=== PATIENT | male | born 1950 | race Caucasian/White ===

== ENCOUNTER 2018-12-15 07:55 | Emergency (ER) | payer MEDICARE ==
[~2018-12-15] VITALS: Ht 182.9 cm; Wt 111.1 kg
--- OUTSIDE RECORDS SUMMARY | 2018-12-15 08:01 | XMS REPORT ---
Author Author [facility] Address Unknown Phone Unavailable Care Team Providers Care Concrete Vault Maker Name Role Phone RILEY STILES Unavailable Unavailable Problems This patient has no known problems. Allergies, Adverse Reactions, Alerts This patient has no known allergies or adverse reactions. Medications This patient has no known medications. Results Test Description Test Time Test Comments Text Results Atomic Results Result Comments TISSUE EXAM 2018-07-21 17:02:00 Surgical Pathology Report Case: [id number] Authorizing Provider: Kesha Stiles, Collected: 07/14/2018 1118 MD Ordering Location: [facility] PERIOPERATIVE Received: 07/14/2018 1243 SERVICES Pathologist: La Caballero MD Specimen: Femoral Head,Left Hip LEFT FEMORAL HEAD, TOTAL HIP REPLACEMENT: - DEGENERATIVE JOINT DISEASE, SEVERE - SYNOVIUM WITH REACTIVE CHANGES - SUGGESTIVE OF OSTEOPENIA - NEGATIVE FOR MALIGNANCY Signing Pathologist Direct Phone Line: [phone] signed by La Caballero MD on 07/21/2018 at 5:02 [id number]; [id number] osteoarthritis left hipLeft femoral head Received fresh labeled "femoral head, left hip" is a 7.5 x 5.5 x 4.5 cm femoral head. The articular surface is mckeon-white to yellow-cooper and displays focal areas of pitting and eburnation. Also noted is osteophyte formation surrounding the periphery. Section code: A1-A2, bone for decalcification; A3, soft tissue for decalcification. DB/ew PERFORMED BASIC METABOLIC PANEL 2018-07-15 04:57:00 SODIUM (BEAKER) (test oigx=206) 138 meq/L 136-145 POTASSIUM (BEAKER) (test flut=553) 4.7 meq/L 3.5-5.1 Specimen slightly hemolyzed CHLORIDE (BEAKER) (test qnrq=689) 107 meq/L 98-107 CO2 (BEAKER) (test vocy=969) 25 meq/L 22-29 BLOOD UREA NITROGEN (BEAKER) (test fiuj=499) 16 mg/dL 7-21 CREATININE (BEAKER) (test zbet=943) 0.84 mg/dL 0.57-1.25 Specimen slightly hemolyzed GLUCOSE RANDOM (BEAKER) (test jmjp=141) 130 mg/dL 70-105 CALCIUM (BEAKER) (test ribe=582) 9.0 mg/dL 8.4-10.2 EGFR (BEAKER) (test xitr=9019) 91 mL/min/1.73 sq m ESTIMATED GFR IS NOT ACCURATE CREATININE CLEARANCE IN PREDICTING GLOMERULAR FILTRATION RATE. ESTIMATED GFR IS NOT APPLICABLE FOR DIALYSIS PATIENTS. HEMOGLOBIN AND [id number] 04:27:00* Test Item Value Reference Range Comments HEMOGLOBIN (BEAKER) (test xtld=803) 12.8 GM/DL 13.7-17.5 HEMATOCRIT (BEAKER) (test quzz=662) 39.1 % 40.1-51.0 RAD, PELVIS, 1 OR 2 [id number] 13:41:00Reason for exam:->post op total hip in PACUShould this be performed at the bedside?->YesFINAL REPORT TECHNIQUE: Frontal radiograph of the pelvis dated 07/14/2018 HISTORY: Postop total hip COMPARISON: Radiograph of the pelvis performed earlier the same day. IMPRESSION:The patient is status post total left knee arthroplasty with postsurgical fluid and air seen in the soft tissues. No fracture or dislocation. Bones are osteopenic. Degenerative changes are seen in the right hip. No bone erosion or soft tissue nodule seen. Signed: Aranza Amadoreport Verified Date/Time: 07/14/2018 13:41:02 Reading Location: [facility] Radiology Reading Room , PELVIS, 1 OR 2 [id number] 12:02:00Reason for exam:->left hip arthroplastyFINAL REPORT CLINICAL HISTORY: left hip arthroplasty TECHNIQUE: AP view of the lower pelvis COMPARISON: None IMPRESSION: Surgical hardware overlies and partially obscures the visualized portions of the pelvis. The patient is undergoing left total hip replacement with an acetabular component and femoral rasp. Signed: Chelita Beth MDReport Verified Date/Time: 07/14/2018 12:02:19 Reading Location: [facility] Radiology Reading Room
--- OUTSIDE RECORDS SUMMARY | 2018-12-15 08:01 | XMS REPORT | Clinical Summary ---
Author Author [facility] Address Unknown Phone Unavailable Care Team Providers Care Conservation Assistant Name Role Phone PCP Unavailable Allergies No Known Allergies Medications End Date Status Medication Sig Dispensed Refills Start Date Active atorvastatin (LIPITOR) 20 Take 20 mg by 0 MG tablet mouth daily. 08/13/2018 aspirin 325 MG EC tablet Take 1 tablet 28 tablet 0 (325 mg 8 total) by mouth daily for 28 days. 07/30/2018 HYDROcodone-acetaminophen Take 1 tablet 60 tablet 0 (NORCO 10-325) 10-325 mg by mouth 8 per tablet every 6 (six) hours as needed for up to 15 days. Max Daily Amount: 4 tablets Active Problems Problem Noted Date Primary osteoarthritis of left hip 07/14/2018 Status post left hip replacement 07/14/2018 Encounters Care Team Description Date Type Specialty 07/15/2018 Travel Kesha Lopez MD ARTHROPLASTY,HIP 07/14/2018 Surgery Rosa Maria Mejia NP 07/14/2018 Anesthesia Event Kesha Lopez MD 07/14/2018 [facility] General Internal Medicine - Encounter 07/15/2018 07/14/2018 Travel Resource, [employer] Preadmit Phone 07/08/2018 Hospital Pre-Admission Testing Encounter after 12/14/2017 Social History Date Tobacco Use Types Packs/Day Years Used Never Smoker Smokeless Tobacco: Current User Comments: dips 2 cans per week Alcohol Use Drinks/Week oz/Week Comments Yes occasional Sex Assigned at Date Recorded Not on file Industry Job Start Date Occupation Not on file Not on file Not on file Travel End Travel History Travel Start No recent travel history available. Last Filed Vital Signs Time Taken Vital Sign Reading 07/15/2018 3:43 PM [employer] Blood Pressure 123/68 07/15/2018 3:43 PM [employer] Pulse 80 07/15/2018 3:43 PM [employer] Temperature 37.2 C (99 F) 07/15/2018 3:43 PM [employer] WORK[employer] Respiratory Rate 18 07/15/2018 3:43 PM [employer] WORKER Oxygen Saturation 98% - Inhaled Oxygen - Concentration 07/14/2018 8:05 AM [employer] WORK[employer] Weight 125 kg (275 lb 9.2 oz) 07/14/2018 8:05 AM [employer] WORK[employer] Height 182.9 cm (6') 07/14/2018 8:05 AM [employer] WORKER Body Mass Index 37.37 Plan of Treatment Not on file Implants Device Identifier Shelf Expiration Date Model / Serial / Lot Implanted Type Area Manufactur er 02/02/2023 [id number] / / [id number] Scr Low Profile 6.5x20mm 6044-2880 Fracture/F Left: Hip JAQUAN:ST - [id number] TIMMY Implanted: Qty: 2 on 07/14/2018 by Kesha Cunha MD 04/25/2023 702-04-56F / / [id number] Trident Ii Tri Clusterhole 56f Joints Left: Hip JAQUAN 702-04-56f - [id number] ORTHO CAP Implanted: Qty: 1 on 07/14/2018 by Kesha Lopez MD 05/29/2023 623-00-36F / [id number] / [id number] Insrt Trident X3 0deg F 36mm Joints Left: Hip JAQUAN:ST 623-00-36f - [id number] TIMMY Implanted: Qty: 1 on 07/14/2018 by Kesha Cunha MD 10/21/2022 [id number] / [id number] / [id number] Hip Stem Accolade Ii 127d 5 - Joints Left: Hip JAQUAN:ST [id number] TIMMY Implanted: Qty: 1 on 07/14/2018 by Kesha Cunha MD 04/08/2023 6570-0-236 / [id number] / [id number] Head Fem Biolox V40 36mm 6570-0-236 Joints Left: Hip JAQUAN:ST - [id number] Implanted: Qty: 1 on 07/14/2018 by Kesha Cunha MD CS Procedures Comments Procedure Name Priority Date/Time Associated Diagnosis TRANSFUSION SERVICE 07/15/2018 REPORT - SCAN 5:51 PM [employer] WORK[employer] HEMOGLOBIN AND HEMATOCRIT Routine 07/15/2018 3:45 AM [employer] FACTORY WORKER BASIC METABOLIC PANEL (7) Routine 07/15/2018 3:45 AM [employer] WORKER XR PELVIS 1 OR 2 VIEWS STAT 07/14/2018 1:21 PM [employer] WORKER XR PELVIS 1 OR 2 VIEWS Routine 07/14/2018 11:34 AM [employer]ORY WORKER TISSUE EXAM AP Routine 07/14/2018 11:18 AM [employer] WORKER ARTHROPLASTY,HIP 07/14/2018 Primary osteoarthritis of 11:05 AM [employer] WORKER left hip Special Needs (JAQUAN ACCOLADE 2,SPINAL /EPIDURAL) ANESTHESIA SPINAL BLOCK Routine 07/14/2018 10:23 AM [employer] FACTORY WORKER TYPE AND SCREEN, Routine 07/14/2018 AUTOMATED 9:13 AM [employer] FACTORY WORKER after 12/14/2017 Results * TRANSFUSION SERVICE REPORT - SCAN (07/15/2018 5:51 PM JOIN[employer] FACTORY WORKER) Narrative Performed At * Hemoglobin and hematocrit (07/15/2018 3:45 AM JOIN[employer] FACTORY WORKER) Hemoglobin 12.8 (L) 13.7 - 17.5 GM/DL [facility] Hematocrit 39.1 (L) 40.1 - 51.0 % [facility] Specimen Blood - Arm, Right Performing Organization Address City/State/Zipcode Phone Number [facility] [address] [place] [address] MEDICAL [facility]ENTER * Basic metabolic panel (07/15/2018 3:45 AM JOINERY FACTORY WORKER) Sodium 138 136 - 145 meq/L [facility] Potassium 4.7Comment: Specimen slightly 3.5 - 5.1 meq/L [facility] hemolyzed [facility] Chloride 107 98 - 107 meq/L [facility] CO2 25 22 - 29 meq/L [facility] BUN 16 7 - 21 mg/dL [facility] Creatinine 0.84Comment: Specimen slightly 0.57 - 1.25 mg/dL [facility] Glucose 130 (H) 70 - 105 mg/dL [facility] Calcium 9.0 8.4 - 10.2 mg/dL [facility] EGFR 91Comment: ESTIMATED GFR IS mL/min/1.73 sq m [facility] NOT ACCURATE CREATININE [facility] CLEARANCE IN PREDICTING GLOMERULAR FILTRATION RATE. ESTIMATED GFR IS NOT APPLICABLE FOR DIALYSIS PATIENTS. Specimen Blood - Arm, Right Performing Organization Address City/State/Zipcode Phone Number [facility] [address] [place] [address] [facility] * XR pelvis 1 or 2 views (07/14/2018 1:21 PM [employer] FACTORY WORKER) Only the most recent of 2 results within the time period is included. Narrative Performed At FINAL REPORT RIS TECHNIQUE: Frontal radiograph of the pelvis dated 07/14/2018 HISTORY: Postop total hip COMPARISON: Radiograph of the pelvis performed earlier the same day. IMPRESSION: The patient is status post total left knee arthroplasty with postsurgical fluid and air seen in the soft tissues. No fracture or dislocation. Bones are osteopenic. Degenerative changes are seen in the right hip. No bone erosion or soft tissue nodule seen. Signed: Venu Amador MD Report Verified Date/Time:07/14/2018 13:41:02 Reading Location: [facility] Radiology Reading Room Procedure Note Interface, External Ris In - 07/14/2018 1:43 PM [employer] WORKER FINAL REPORT TECHNIQUE: Frontal radiograph of the pelvis dated 07/14/2018 HISTORY: Postop total hip COMPARISON: Radiograph of the pelvis performed earlier the same day. IMPRESSION: The patient is status post total left knee arthroplasty with postsurgical fluid and air seen in the soft tissues. No fracture or dislocation. Bones are osteopenic. Degenerative changes are seen in the right hip. No bone erosion or soft tissue nodule seen. Signed: Venu Amador MD Report Verified Date/Time: 07/14/2018 13:41:02 Reading Location: [facility] Radiology Reading Room Performing Organization Address City/State/Zipcode Phone Number [facility] * Tissue Exam (07/14/2018 11:18 AM [employer] FA[employer]ORY WORKER) Case Report Surgical Pathology [facility] Report [facility] Case: [id number] Authorizing Provider:Kesha Lopez, Collected: 07/14/2018 1118 MD Ordering Location: [facility] PERIOPERATIVE Received: 07/14/2018 1243 SERVICES Pathologist: La Caballero MD Specimen:Femoral Head,Left Hip DIAGNOSIS LEFT FEMORAL HEAD, TOTAL HIP [facility] REPLACEMENT: [facility] - DEGENERATIVE JOINT DISEASE, SEVERE - SYNOVIUM WITH REACTIVE CHANGES - SUGGESTIVE OF OSTEOPENIA - NEGATIVE FOR MALIGNANCY Signing Pathologist Direct Phone Line: [phone] CPT Code(s) 73435; 12996 [facility] CLINICAL HISTORY Primary osteoarthritis left [facility] hip [facility] SPECIMEN SOURCE Left femoral head [facility] GROSS DESCRIPTION Received fresh labeled [facility] "femoral head, left hip" is a [facility] 7.5 x 5.5 x 4.5 cm femoral head. The articular surface is mckeon-white to yellow-cooper and displays focal areas of pitting and eburnation. Also noted is osteophyte formation surrounding the periphery. Section code: A1-A2, bone for decalcification; A3, soft tissue for decalcification. DB/ew MICROSCOPIC DESCRIPTION PERFORMED [facility] Specimen Tissue - Femoral Head,Left Hip Performing Organization Address City/State/Zipcode Phone Number [address] [address] MEDICAL CENTER * ANESTHESIA SPINAL BLOCK (07/14/2018 10:23 AM [employer] FA[employer]ORY WORKER) Narrative Performed At Adam Simon MD 07/14/2018 10:24 AM Spinal Block Patient location during procedure: pre-procedure Start time: 07/14/2018 10:05 AM End time: 07/14/2018 10:16 AM Procedure Indication: procedure for pain, at surgeon's request, post-op pain management and primary anesthetic Staffing Anesthesiologist: Jonathon Recinos MD Resident/PUBLIC FINANCE SPECIALIST: Adam Simon MD Preanesthetic Checklist Completed: patient identified, pre-op evaluation, timeout performed, IV checked, risks and benefits discussed, monitors and equipment checked, anesthesia consent given, prep site dry prior to draping and maximum sterile barriers were used: cap, mask, sterile gown, sterile gloves, and large sterile sheet Prep Prep: Betadine Procedures: sterile gloves, surgical mask and surgical hat Spinal Block Patient position: sitting Patient monitoring: EKG, HR, BP and SpO2 Approach: midline Pictures are available Level:L4-5 Injection technique: single-shot Needle Needle type: pencil-tip Needle gauge: 25 G Needle Length: 9 cm Used introducer Assessment Sensory level: T10 Events: cerebrospinal fluid Additional Notes +CSF aspiration prior to and after injection. Dr. Recinos present throughout. Procedure Note Adam Simon MD - 07/14/2018 10:23 AM JOIN[employer] FACTORY WORKER Spinal Block Patient location during procedure: pre-procedure Start time: 07/14/2018 10:05 AM End time: 07/14/2018 10:16 AM Procedure Indication: procedure for pain, at surgeon's request, post-op pain management and primary anesthetic Staffing Anesthesiologist: Jonathon Recinos MD Resident/PUBLIC FINANCE SPECIALIST: Adam Simon MD Preanesthetic Checklist Completed: patient identified, pre-op evaluation, timeout performed, IV checked, risks and benefits discussed, monitors and equipment checked, anesthesia consent given, prep site dry prior to draping and maximum sterile barriers were used: cap, mask, sterile gown, sterile gloves, and large sterile sheet Prep Prep: Betadine Procedures: sterile gloves, surgical mask and surgical hat Spinal Block Patient position: sitting Patient monitoring: EKG, HR, BP and SpO2 Approach: midline Pictures are available Level: L4-5 Injection technique: single-shot Needle Needle type: pencil-tip Needle gauge: 25 G Needle Length: 9 cm Used introducer Assessment Sensory level: T10 Events: cerebrospinal fluid Additional Notes +CSF aspiration prior to and after injection. Dr. Recinos present throughout. * Type and screen, automated (07/14/2018 9:13 AM [employer] FACTORY WORKER) ABO/RH AUTOMATED (BEAKER) O POSITIVE [facility] Ab Scrn NEGATIVE [facility] Specimen Blood Performing Organization Address City/State/Zipcode Phone Number [facility] [address] [place] [address] MEDICAL CENTER after 12/14/2017 Insurance Payer Benefit Subscriber ID Type Phone Address Plan / Group [facility] xxxxxxxxxxx MEDICARE ADV Advance Directives For more information, please contact: [facility] [address] [place], [place] [id number] Date Inactivated Comments Code Status Date Activated Full Code 07/14/2018 8:59 AM This code status was determined by: Patient
[2018-12-15] MEDS ORDERED: PANTOPRAZOLE 40 MG 10ML VIAL IV STA (08:15)
[2018-12-15] MEDS ORDERED: ONDANSETRON HCL INJ 2MG/ML 2ML 2 MG/ML VIAL IV NR (08:15)
[2018-12-15] MEDS ORDERED: SODIUM CHLORIDE 0.9% 1000ML 1,000 ML IV STA (08:15)
[2018-12-15 09:19] LABS: BASOPHILS % 0.3 % (0.0-1.0); HEMATOCRIT 48.6 % (38.2-49.6); HEMOGLOBIN 16.7 g/dL (14.0-18.0); LYMPHOCYTES # (AUTO) 1.3 (1.0-3.2); LYMPHOCYTES % 14.9 % (18.0-39.1); MEAN CORPUSCULAR HEMOGLOBIN 31.4 pg (28-32); MEAN CORPUSCULAR HGB CONC 34.4 g/dL (31-35); MEAN CORPUSCULAR VOLUME 91.4 fL (81-99); MONOCYTES # (AUTO) 0.6 (0.2-0.8); NEUTROPHILS # (AUTO) 6.8 (2.1-6.9); NEUTROPHILS % 77.5 % (38.7-80.0); PLATELET COUNT 238 x10e3/uL (140-360); RED BLOOD COUNT 5.32 x10e6/uL (4.3-5.7); RED CELL DISTRIBUTION WIDTH 14.6 % (11.7-14.4)
[2018-12-15 09:33] LABS: ALANINE AMINOTRANSFERASE 10 IU/L (0-55); ALBUMIN 3.6 g/dL (3.5-5.0); ALBUMIN/GLOBULIN RATIO 1.2 (0.8-2.0); ALKALINE PHOSPHATASE 74 IU/L (40-150); AMYLASE 207 U/L (25-125); ANION GAP 13.7 mmol/L (8-16); BLOOD UREA NITROGEN 13 mg/dL (7-26); BUN/CREATININE RATIO 15 (6-25); CALCIUM 9.4 mg/dL (8.4-10.2); CARBON DIOXIDE 24 mmol/L (22-29); CHLORIDE 106 mmol/L (98-107); CREATINE KINASE 101 IU/L (30-200); CREATININE, SERUM 0.87 mg/dL (0.72-1.25); EST GLOMERULAR FILTRATION RATE > 60 ML/MIN (60-); GLUCOSE 118 mg/dL (74-118); LIPASE 179 U/L (8-78); POTASSIUM 3.7 mmol/L (3.5-5.1); SODIUM 140 mmol/L (136-145)
[2018-12-15 10:12] LABS: CLARITY,URINE CLEAR (CLEAR); COLOR,URINE YELLOW (YELLOW); KETONES,URINE 2+ (NEGATIVE); LEUKOCYTE ESTERASE ,URINE NEGATIVE (NEGATIVE); NITRITE,URINE NEGATIVE (NEGATIVE); PROTEIN,URINE DIPSTICK TRACE (NEGATIVE)
[2018-12-15 10:16] LABS: BILIRUBIN,URINE 1+ (NEGATIVE); URINE UROBILINOGEN 0.2 mg/dL (0.2 - 1)
--- NOTE | 2018-12-15 10:24 | NUR ---
VERBAL REPORT GIVEN TO KATLYN LUNDBERG.
--- NOTE | 2018-12-15 10:25 | NUR ---
RECEIVED REPORT FROM KATLYN BROUSSARD.
[2018-12-15 10:27] LABS: WBC,URINE (MAN) 0-5 /HPF (0-5)
[2018-12-15 10:28] LABS: EPITHELIAL CELLS,URINE RARE /LPF; RBC,URINE 21-50 /HPF (0-5)
[2018-12-15 10:30] LABS: BACTERIA,URINE FEW /HPF; MUCUS,URINE FEW (RARE)
--- NOTE | 2018-12-15 12:31 | Diagnostic Imaging Report ---
EXAM: CT Abdomen and Pelvis WITH contrast INDICATION: Acute pancreatitis COMPARISON: None. TECHNIQUE: Abdomen and pelvis were scanned utilizing a multidetector helical scanner from the lung base to the pubic symphysis after administration of IV contrast. Coronal and sagittal reformations were obtained. Routine protocol was performed. Scan was performed when during portal venous phase. Dose modulation, iterative reconstruction, and/or weight based adjustment of the mA/kV was utilized to reduce the radiation dose to as low as reasonably achievable. IV CONTRAST: 100 mL of Isovue-370 ORAL CONTRAST: 250 cc water RADIATION DOSE: Total DLP: 862.86 mGy*cm Estimated effective dose: (DLP x 0.015 x size factor) mSv COMPLICATIONS: None FINDINGS: LINES and TUBES: None. LOWER THORAX: Lung bases clear. Minimal atelectasis in the lingula. Heart size normal. HEPATOBILIARY: 1.1 cm lucency in the right lobe of the liver compatible with small cyst based on appearance and internal density. No other focal hepatic lesions. No biliary ductal dilation. GALLBLADDER: No radio-opaque stones or sludge. No wall thickening. SPLEEN: No splenomegaly. PANCREAS: No focal masses or ductal dilatation. No peripancreatic inflammatory stranding or fluid collection. ADRENALS: Nonspecific bilateral adrenal nodules measuring 2.2 cm on the right and 2.1 cm on the left. KIDNEYS/URETERS: Kidneys enhance symmetrically. No hydronephrosis. Cortical hypodensities measuring 1 cm at the upper pole left kidney and lateral midportion right kidney, too small to fully characterize. No stones. GI TRACT: No abnormal distention or evidence of bowel obstruction. Sigmoid diverticulosis with no CT evidence for acute diverticulitis. There is mild wall thickening of proximal jejunal loops without dilatation. The appendix is not conspicuously visualized. There is no inflammation in the right lower quadrant. PELVIC ORGANS/BLADDER: Urinary bladder unremarkable. No discrete abnormal mass or fluid collection in the pelvis. Mild prominence of the prostate. LYMPH NODES: No dominant lymph node mass in the abdomen, retroperitoneum or pelvis. VESSELS: There are scattered atherosclerotic plaques of the abdominal aorta with no aneurysm or dissection. Iliac arteries are tortuous. IVC and portal system unremarkable. PERITONEUM / RETROPERITONEUM: No pneumoperitoneum or ascites. BONES: No acute or suspicious bony lesion. Degenerative changes are present in the spine with disc space narrowing and mild retrolisthesis of L5 on S1. Left hip arthroplasty hardware noted. SOFT TISSUES: Superficial surrounding soft tissue unremarkable. IMPRESSION: 1. Mild wall thickening of proximal jejunal loops is nonspecific, but may be seen with infectious or inflammatory enteritis. 2. Nonspecific bilateral adrenal nodules. These may be further characterized with adrenal mass protocol CT. 3. Small bilateral renal cortical hypodensities, too small to fully characterize, likely represent small cysts. A hypodensity in the right lobe of the liver also has an appearance of small cyst. 4. No discrete pancreatic mass, duct dilatation, peripancreatic inflammatory stranding or fluid collection. Staff: Cuco Signed by: Dr. Albert Norwood M.D. on 12/15/2018 12:28 PM
== END 2018-12-15 13:10 | disposition home or self-care (01) ==
LOC: ER 07:55
DX: R10.9 Unspecified abdominal pain (principal); R11.2 Nausea with vomiting, unspecified; K85.00 Idiopathic acute pancreatitis without necrosis or infection; E78.5 Hyperlipidemia, unspecified
CPT/HCPCS: 36415; 74177; 80053; 81001; 82150; 82550; 82553; 83690; 83880; 84484; 85025; 93005; 99284; J2405; J7030